=== PATIENT | male | born 1990 | race Caucasian/White ===

== ENCOUNTER → 2017-01-03 | Outpatient (CLI) | payer BC ==
--- NOTE | 2017-01-03 20:08 | US ---
EXAMINATION TYPE: US abdomen complete DATE OF EXAM: 01/03/2017 COMPARISON: NONE CLINICAL HISTORY: R10.84 ABD PAIN. Kidney infection EXAM MEASUREMENTS: Liver Length: 12.8 cm Gallbladder Wall: 0.1 cm CBD: 0.1 cm Spleen: 7.9 cm Right Kidney: 9.4 x 3.2 x 4.0 cm Left Kidney: 9.4 x 4.2 x 5.1 cm Pancreas: wnl Liver: wnl Gallbladder: wnl Evidence for sonographic Morgan's sign: No CBD: wnl Spleen: wnl Right Kidney: wnl Left Kidney: wnl Upper IVC: wnl Abd Aorta: wnl The liver is homogenous. The intrahepatic portion of the IVC and proximal abdominal aorta are within normal limits. There is no evidence of cholelithiasis. Common bile duct is unremarkable. The visu alized portions of the pancreas are homogenous. The spleen is unremarkable. Kidneys are symmetric a nd free of hydronephrosis. No renal lesions are seen. IMPRESSION: No acute process
== END | disposition home or self-care (01) ==
LOC: RADUSWWP 16:31
PROVIDERS: ATTEND Family Medicine
DX: R10.84 Generalized abdominal pain (principal)
CPT/HCPCS: 76700

== ENCOUNTER 2020-09-13 21:58 | Emergency (ER) | payer BC, OTHER ==
[2020-09-13 22:12] VITALS: RESP 18; TEMP 97.8
[2020-09-13] MEDS ORDERED: FLUORESCEIN STRIPS 1 MG STRIP LEFT EYE ONE (22:49)
[2020-09-13] MEDS ORDERED: PROPARACAINE 0.5% OPHTH DROPS 15 ML BTL LEFT EYE STA (22:49)
--- NOTE | 2020-09-13 23:42 | ED ---
Eye Problem HPI - General Chief complaint: Eye Problems Stated complaint: L Eye Problem Time Seen by Provider: 09/13/20 22:49 Source: patient Mode of arrival: ambulatory Limitations: no limitations - History of Present Illness Initial comments: Patient is a 30-year-old male presenting to the emergency Department with complaints of a foreign object in his left eye. Patient thinks he has a little piece of metal in his left eyes since yesterday. He states he was grinding some metal, he was wearing safety glasses when he feels like a piece flew into his eye. He denies any changes in his vision. He states his eye continues to feel irritated today so he decided to come in to be seen. He denies wearing contact lens. No fevers. He has no further complaints at this time. - Related Data Previous Rx's Medication Instructions Recorded Erythromycin Ophth Oint [Romycin 1 applic LEFT EYE QID 5 Days #1 09/13/20 Ophth Oint] tube Allergies Allergy/AdvReac Type Severity Reaction Status Date / Time No Known Allergies Allergy Verified 09/13/20 22:12 Review of Systems ROS Statement: Those systems with pertinent positive or pertinent negative responses have been documented in the HPI. ROS Other: All systems not noted in ROS Statement are negative. Past Medical History Past Medical History: No Reported History History of Any Multi-Drug Resistant Organisms: None Reported Past Surgical History: No Surgical Hx Reported Past Psychological History: No Psychological Hx Reported Smoking Status: Current every day smoker Past Alcohol Use History: Occasional Past Drug Use History: None Reported General Exam - General Exam Comments Initial Comments: GENERAL: Patient is well-developed and well-nourished. Patient is nontoxic and in no acute distress. HEAD: Atraumatic, normocephalic. EYES: Pupils equal round and reactive to light, extraocular movements intact, sclera anicteric. Eyelids were unremarkable. Left conjunctiva slightly injected, there appears to be a foreign body in the center of the eye right over the pupil. Fluorescein stain reveals same abrasion. No Sudol sign. ENT: TMs normal, nares patent, oropharynx clear without exudates. Moist mucous membranes. NECK: Normal range of motion, supple without lymphadenopathy or JVD. LUNGS: Unlabored respirations. Breath sounds clear to auscultation bilaterally and equal. No wheezes rales or rhonchi. HEART: Regular rate and rhythm without murmurs, rubs or gallops. ABDOMEN: Soft, nontender, normoactive bowel sounds. No guarding, no rebound. No masses appreciated. : Deferred MUSCULOSKELETAL: Normal extremities with adequate strength and normal range of motion, no pitting or edema. No clubbing or cyanosis. SKIN: Warm, Dry, normal turgor, no rashes or lesions noted. Limitations: no limitations Course Vital Signs 09/13/20 09/13/20 22:10 23:52 Temperature 97.8 F Pulse Rate 87 72 Respiratory 18 18 Rate Blood Pressure 129/75 116/81 O2 Sat by Pulse 100 100 Oximetry Procedures - Forgein Body Removal Eye Site: Left Anesthetic Used: Proparacaine Eye Exam Technique: Garcia Lamp, Fluorescein Foreign Body Suspected: Metal Forgein Body Removal Technique: Cotton Swab, Irrigation, Needle Remaining Debris: No Patient Tolerated: well Medical Decision Making - Medical Decision Making Patient is a 30-year-old male here with a foreign body in the left eye, most likely metal. Object was removed without difficulty using a swab as well as a needle. He tolerated procedure well. Patient will be started on antibiotic ointment and recommended following up with systems manager. He is stable for discharge and he is in agreement this plan of care. Disposition Clinical Impression: Foreign body of left eye Disposition: HOME SELF-CARE Condition: Stable Instructions (If sedation given, give patient instructions): Eye Foreign Body (ED) Additional Instructions: Please return to the Emergency Department if symptoms worsen or any other concerns. Use antibiotic eye ointment as discussed. Take ibuprofen for discomfort. Follow-up with systems manager as discussed. Prescriptions: Erythromycin Ophth Oint [Romycin Ophth Oint] 1 applic LEFT EYE QID 5 Days #1 tube Is patient prescribed a controlled substance at d/c from ED?: No Referrals: None,Stated [Primary Care Provider] - 1-2 days Layne Anderson MD [STAFF PHYSICIAN] - 1-2 days Time of Disposition: 23:41
[2020-09-13 23:53] VITALS: BP 116/81; PULSE 72
== END 2020-09-13 23:53 | disposition home or self-care (01) ==
LOC: EC 21:58
DX: T15.92XA Foreign body on external eye, part unspecified, left eye, initial encounter (principal); F17.200 Nicotine dependence, unspecified, uncomplicated
CPT/HCPCS: 65205; 99283